=== PATIENT | male | born 1990 | race Caucasian/White ===

== ENCOUNTER 2021-03-12 20:53 | Emergency (ER) | payer MEDICAID ==
[~2021-03-12] VITALS: Ht 180.3 cm; Wt 100.0 kg
[~2021-03-12 20:53] MED LIST: HYDR-2514 PO; NAPR-700 PO
[2021-03-13 00:29] LABS: BASOPHILS % (AUTO) 0.6 % (0-1); EOSINOPHILS # (AUTO) 0.1 X10'3 (0-0.9); EOSINOPHILS % (AUTO) 1.5 % (0-6); HEMATOCRIT 40.9 % (42.0-52.0); LYMPHOCYTES # (AUTO) 2.1 X10'3 (1.1-4.8); LYMPHOCYTES % (AUTO) 33.1 % (21-51); MEAN CORPUSCULAR HEMOGLOBIN 29.7 PG (27.0-31.0); MEAN CORPUSCULAR HGB CONC 34.1 g/dL (33.0-36.5); MEAN PLATELET VOLUME 8.2 FL (7.4-10.4); MONOCYTES # (AUTO) 0.4 X10'3 (0-0.9); MONOCYTES % (AUTO) 6.2 % (2-12); NEUTROPHILS # (AUTO) 3.7 X10'3 (1.8-7.7); NEUTROPHILS % (AUTO) 58.6 % (42-75); PLATELET COUNT 282 X10'3 (140-440); RED BLOOD COUNT 4.71 X10'6 (4.70-6.10); RED CELL DISTRIBUTION WIDTH 13.2 % (11.5-14.5); WHITE BLOOD COUNT 6.3 X10'3 (4.5-11.0)
[2021-03-13 01:16] LABS: ANION GAP 8 (8-16); BLOOD UREA NITROGEN 11 MG/DL (7-18); CALCIUM 9.5 MG/DL (8.5-10.1); CHLORIDE 107 MMOL/L (99-107); CREATININE 0.92 MG/DL (0.60-1.10); GLUCOSE 88 MG/DL (70-104); POTASSIUM 4.4 MMOL/L (3.5-5.1); SODIUM 144 MMOL/L (135-145); TOTAL CARBON DIOXIDE 28.6 MMOL/L (24-32); TROPONIN I < 0.04 NG/ML (0.0-0.05); eGFR > 90 ML/MIN
[2021-03-13 02:11] VITALS: BP 141/68
== END 2021-03-13 02:12 | disposition home or self-care (01) ==
LOC: ER 20:54
DX: R55 Syncope and collapse (principal); R51.9 Headache, unspecified
CPT/HCPCS: 36415; 70450; 71045; 80048; 84484; 85025; 93005; 99285

== ENCOUNTER 2021-08-31 13:48 | Emergency (ER) | payer MEDICAID ==
[~2021-08-31] VITALS: Ht 180.3 cm; Wt 104.0 kg
[2021-08-31] MEDS ORDERED: NALO4SPR BOTHNARES (14:35)
[2021-08-31 14:56] VITALS: BP 143/84
== END 2021-08-31 14:58 | disposition home or self-care (01) ==
LOC: ER 13:48
DX: T50.7X1A Poisoning by analeptics and opioid receptor antagonists, accidental (unintentional), initial encounter (principal); Z79.899 Other long term (current) drug therapy; Z98.890 Other specified postprocedural states; Y92.89 Other specified places as the place of occurrence of the external cause
CPT/HCPCS: 93005; 99283

== ENCOUNTER 2022-01-29 01:29 | Emergency (ER) | payer MEDICAID ==
[~2022-01-29] VITALS: Ht 180.3 cm; Wt 86.4 kg
[~2022-01-29 01:29] MED LIST changes: +NALO4SPR BOTHNARES
--- NOTE | 2022-01-29 03:00 | NUR ---
PT BACK FROM CT SCAN, DROWSY BUT AWAKENS EASILY TO VOICE.
--- NOTE | 2022-01-29 03:55 | NUR ---
PT DOZING ON MAVIS, NO CHANGE, VS WNL
--- NOTE | 2022-01-29 04:43 | NUR ---
PT REMAINS DROWSY BUT AWAKENS TO VOICE.
[2022-01-29] MEDS ORDERED: NALO4SPR BOTHNARES (04:45)
[2022-01-29 06:17] VITALS: BP 127/85
== END 2022-01-29 06:20 | disposition home or self-care (01) ==
LOC: ER 01:29
DX: T40.411A Poisoning by fentanyl or fentanyl analogs, accidental (unintentional), initial encounter (principal); Z98.890 Other specified postprocedural states; Z72.89 Other problems related to lifestyle; Z79.899 Other long term (current) drug therapy; Y92.89 Other specified places as the place of occurrence of the external cause
CPT/HCPCS: 70450; 70486; 99285

== ENCOUNTER 2022-07-17 07:31 | Inpatient (IN) | payer MEDICAID ==
[~2022-07-17] VITALS: Ht 154.9 cm; Wt 81.9 kg
[2022-07-17] MEDS ORDERED: VANCOMYCIN 1,500MG inj. 1,500 MG in normal saline 500ml IV soln 300 ML IV ONE (08:25)
[2022-07-17 08:29] LABS: BASOPHILS # (AUTO) 0.1 X10'3 (0-0.2); BASOPHILS % (AUTO) 0.5 % (0-1); EOSINOPHILS # (AUTO) 0.1 X10'3 (0-0.9); EOSINOPHILS % (AUTO) 0.5 % (0-6); HEMATOCRIT 33.8 % (42.0-52.0); LYMPHOCYTES # (AUTO) 1.7 X10'3 (1.1-4.8); LYMPHOCYTES % (AUTO) 11.4 % (21-51); MEAN CORPUSCULAR HEMOGLOBIN 28.4 PG (27.0-31.0); MEAN CORPUSCULAR HGB CONC 32.7 g/dL (33.0-36.5); MEAN CORPUSCULAR VOLUME 86.9 FL (78-98); MEAN PLATELET VOLUME 7.6 FL (7.4-10.4); MONOCYTES % (AUTO) 7.1 % (2-12); NEUTROPHILS # (AUTO) 11.8 X10'3 (1.8-7.7); NEUTROPHILS % (AUTO) 80.5 % (42-75); PLATELET COUNT 281 X10'3 (140-440); RED BLOOD COUNT 3.89 X10'6 (4.70-6.10); WHITE BLOOD COUNT 14.7 X10'3 (4.5-11.0)
[2022-07-17 08:46] LABS: ALANINE AMINOTRANSFERASE 67 U/L (12-78); ALBUMIN 3.1 G/DL (3.4-5.0); ALBUMIN/GLOBULIN RATIO 0.8 (1.1-1.5); ALKALINE PHOSPHATASE 152 IU/L (46-116); ANION GAP 7 (8-16); ASPARTATE AMINO TRANSFERASE 59 U/L (10-37); BILIRUBIN,TOTAL 0.3 MG/DL (0.1-1.0); BLOOD UREA NITROGEN 14 MG/DL (7-18); BUN/CREATININE RATIO 17.5 (5.4-32.0); CHLORIDE 105 MMOL/L (99-107); GLUCOSE 116 MG/DL (70-104); SODIUM 139 MMOL/L (135-145); TOTAL CARBON DIOXIDE 26.8 MMOL/L (24-32); TOTAL PROTEIN 7.1 G/DL (6.4-8.2); eGFR > 90 ML/MIN
[2022-07-17] MEDS ORDERED: magnesium 4gm in 100ml NS 100 ML IV PRN (10:40)
[2022-07-17] MEDS ORDERED: acetaminophen 325mg tablet PO PRN (10:40)
[2022-07-17] MEDS ORDERED: diphenhydrAMINE 25mg capsule PO PRN (10:40)
[2022-07-17] MEDS ORDERED: magnesium hydroxide 30ml (MOM) UD suspension PO PRN (10:40)
[2022-07-17] MEDS ORDERED: magnesium Cl slow-release 64mg tablet PO PRN (10:40)
[2022-07-17] MEDS ORDERED: morphine 2 MG/ML inj. syringe IV PRN ×2 (10:40)
[2022-07-17] MEDS ORDERED: potassium Cl 40MEQ/1/2NS 520ml 520 ML IV PRN (10:40)
[2022-07-17] MEDS ORDERED: bisacodyl 10mg suppository rectal RC PRN (10:40)
[2022-07-17] MEDS ORDERED: acetaminophen 650mg rectal suppository RC PRN (10:40)
[2022-07-17] MEDS ORDERED: mag hydrox/Alum hydrox/simeth 30ml oral suspension PO PRN (10:40)
[2022-07-17] MEDS ORDERED: potassium Cl 20 mEq SR tablet PO PRN ×2 (10:40)
[2022-07-17] MEDS ORDERED: ondansetron/PF 4mg/2ml inj IV PRN (10:40)
[2022-07-17] MEDS: normal saline 1000ml 1,000 ML IV SCH ×2 (11:04→20:51)
[2022-07-17] MEDS: piperacillin/tazo 3.375gm/50ml 50 ML IV SCH ×2 (11:05→17:39)
[2022-07-17 11:16] LABS: HEMOGLOBIN A1C 5.5 % (4.5-6.2)
--- NOTE | 2022-07-17 12:36 | NUR ---
report received from er nurse coral
[2022-07-17] MEDS ORDERED: iohexol 300mg/ml 100ml inj. ONE (17:44)
[2022-07-17] MEDS ORDERED: NO HOME MEDS (17:59)
[2022-07-17 18:00] VITALS: BP_SYST 112; BP_DIAS 6; BP_DIAS 67
--- NOTE | 2022-07-17 18:30 | NUR ---
Patient in room [facility]. I have received report from Anjelica ZARATE and had the opportunity to ask questions and assume patient care.
--- NOTE | 2022-07-17 18:32 | NUR ---
Problems reprioritized. Patient report given, questions answered & plan of care reviewed with Candace MAHAN.
[2022-07-17] MEDS: K and/or MAG REPLACEMENT MC SCH (19:30)
[2022-07-17] MEDS: docusate sod 100mg capsule PO SCH (20:00)
[2022-07-17] MEDS: HYDROcodone/acetaminophen 10/325mg tab PO PRN (20:48)
[2022-07-17] MEDS: VANCOmycin 1250MG/NS 250ml Bag 250 ML IV SCH (20:52)
[2022-07-17] MEDS: heparin, porcine 5000 units/ml vial SQ SCH (21:02)
[2022-07-17 22:00] VITALS: BP 129/77
[2022-07-18] MEDS: piperacillin/tazo 3.375gm/50ml 50 ML IV SCH ×3 (00:06→15:43)
[2022-07-18 05:59] LABS: ALANINE AMINOTRANSFERASE 55 U/L (12-78); ALBUMIN 2.8 G/DL (3.4-5.0); ALBUMIN/GLOBULIN RATIO 0.7 (1.1-1.5); ALKALINE PHOSPHATASE 152 IU/L (46-116); ANION GAP 8 (8-16); ASPARTATE AMINO TRANSFERASE 32 U/L (10-37); BILIRUBIN,TOTAL 0.4 MG/DL (0.1-1.0); BLOOD UREA NITROGEN 11 MG/DL (7-18); BUN/CREATININE RATIO 13.6 (5.4-32.0); CHLORIDE 104 MMOL/L (99-107); CHOL/HDL RATIO 2.3 (0.00-4.99); CHOLESTEROL 98 MG/DL (0-200); CREATININE 0.81 MG/DL (0.60-1.10); GLUCOSE 100 MG/DL (70-104); HDL CHOLESTEROL 43 MG/DL (35-60); LDL CHOLESTEROL 51 MG/DL (50-100); PHOSPHORUS 4.2 MG/DL (2.3-4.5); POTASSIUM 4.2 MMOL/L (3.5-5.1); SODIUM 138 MMOL/L (135-145); TOTAL CARBON DIOXIDE 26.2 MMOL/L (24-32); TOTAL PROTEIN 6.7 G/DL (6.4-8.2); TRIGLYCERIDES 42 MG/DL (20-135); eGFR > 90 ML/MIN
[2022-07-18 06:00] VITALS: BP 131/78
[2022-07-18 06:12] LABS: BASOPHILS # (AUTO) 0.1 X10'3 (0-0.2); BASOPHILS % (AUTO) 0.6 % (0-1); EOSINOPHILS # (AUTO) 0.3 X10'3 (0-0.9); EOSINOPHILS % (AUTO) 3.1 % (0-6); HEMATOCRIT 33.5 % (42.0-52.0); HEMOGLOBIN 11.2 g/dl (14.0-17.9); LYMPHOCYTES # (AUTO) 2.1 X10'3 (1.1-4.8); LYMPHOCYTES % (AUTO) 20.8 % (21-51); MEAN CORPUSCULAR HEMOGLOBIN 29.2 PG (27.0-31.0); MEAN CORPUSCULAR HGB CONC 33.3 g/dL (33.0-36.5); MEAN CORPUSCULAR VOLUME 87.6 FL (78-98); MEAN PLATELET VOLUME 7.5 FL (7.4-10.4); MONOCYTES # (AUTO) 0.8 X10'3 (0-0.9); MONOCYTES % (AUTO) 7.6 % (2-12); NEUTROPHILS # (AUTO) 6.8 X10'3 (1.8-7.7); NEUTROPHILS % (AUTO) 67.9 % (42-75); PLATELET COUNT 311 X10'3 (140-440); RED BLOOD COUNT 3.82 X10'6 (4.70-6.10); RED CELL DISTRIBUTION WIDTH 13.5 % (11.5-14.5); WHITE BLOOD COUNT 10.1 X10'3 (4.5-11.0)
[2022-07-18] MEDS: normal saline 1000ml 1,000 ML IV SCH ×3 (06:40→20:16)
--- NOTE | 2022-07-18 06:43 | NUR ---
Problems reprioritized. Patient report given, questions answered & plan of care reviewed with Anjelica ZARATE.
--- NOTE | 2022-07-18 06:51 | NUR ---
Patient in room [facility]. I have received report from ANNITA MAHAN and had the opportunity to ask questions and assume patient care.
[2022-07-18] MEDS: docusate sod 100mg capsule PO SCH ×2 (08:00→20:00)
[2022-07-18] MEDS: K and/or MAG REPLACEMENT MC SCH ×2 (08:00→19:13)
[2022-07-18] MEDS: HYDROcodone/acetaminophen 10/325mg tab PO PRN (08:40)
[2022-07-18] MEDS: heparin, porcine 5000 units/ml vial SQ SCH ×2 (08:40→21:48)
[2022-07-18 11:48] VITALS: BP 138/94
[2022-07-18] MEDS: VANCOmycin 1250MG/NS 250ml Bag 250 ML IV SCH ×2 (13:38→21:55)
--- NOTE | 2022-07-18 17:45 | NUR ---
I have reviewed and agree with all interventions, assessments performed, and documentation by Anjelica Martin LVN.
[2022-07-18 18:00] VITALS: BP 140/94
--- NOTE | 2022-07-18 18:05 | NUR ---
Problems reprioritized. Patient report given, questions answered & plan of care reviewed with Candace MAHAN.
--- NOTE | 2022-07-18 18:10 | NUR ---
Patient in room [facility]. I have received report from Anjelica ZARATE and had the opportunity to ask questions and assume patient care.
[2022-07-18] MEDS: HYDROcodone/acetaminophen 5mg/325mg tablet PO PRN (19:06)
[2022-07-18] MEDS ORDERED: VANCOMYCIN LEVEL IV ONE (20:30)
[2022-07-18 22:00] VITALS: BP 127/69
[2022-07-19] MEDS: piperacillin/tazo 3.375gm/50ml 50 ML IV SCH ×2 (00:31→07:49)
[2022-07-19] MEDS: HYDROcodone/acetaminophen 5mg/325mg tablet PO PRN (00:35)
[2022-07-19] MEDS: normal saline 1000ml 1,000 ML IV SCH (05:14)
[2022-07-19 06:08] LABS: BASOPHILS # (AUTO) 0.1 X10'3 (0-0.2); BASOPHILS % (AUTO) 1.1 % (0-1); EOSINOPHILS # (AUTO) 0.5 X10'3 (0-0.9); EOSINOPHILS % (AUTO) 6.6 % (0-6); HEMATOCRIT 36.6 % (42.0-52.0); HEMOGLOBIN 12.3 g/dl (14.0-17.9); LYMPHOCYTES # (AUTO) 1.9 X10'3 (1.1-4.8); LYMPHOCYTES % (AUTO) 26.3 % (21-51); MEAN CORPUSCULAR HEMOGLOBIN 29.1 PG (27.0-31.0); MEAN CORPUSCULAR HGB CONC 33.5 g/dL (33.0-36.5); MEAN CORPUSCULAR VOLUME 86.7 FL (78-98); MEAN PLATELET VOLUME 7.2 FL (7.4-10.4); MONOCYTES # (AUTO) 0.5 X10'3 (0-0.9); MONOCYTES % (AUTO) 6.3 % (2-12); NEUTROPHILS # (AUTO) 4.4 X10'3 (1.8-7.7); NEUTROPHILS % (AUTO) 59.7 % (42-75); PLATELET COUNT 340 X10'3 (140-440); RED BLOOD COUNT 4.22 X10'6 (4.70-6.10); RED CELL DISTRIBUTION WIDTH 13.2 % (11.5-14.5); WHITE BLOOD COUNT 7.4 X10'3 (4.5-11.0)
--- NOTE | 2022-07-19 06:10 | NUR ---
Problems reprioritized. Patient report given, questions answered & plan of care reviewed with Anjelica ZARATE.
[2022-07-19 06:40] LABS: ALANINE AMINOTRANSFERASE 48 U/L (12-78); ALBUMIN/GLOBULIN RATIO 0.7 (1.1-1.5); ALKALINE PHOSPHATASE 191 IU/L (46-116); ANION GAP 6 (8-16); ASPARTATE AMINO TRANSFERASE 28 U/L (10-37); BILIRUBIN,TOTAL 0.3 MG/DL (0.1-1.0); BLOOD UREA NITROGEN 14 MG/DL (7-18); BUN/CREATININE RATIO 14.9 (5.4-32.0); CALCIUM 9.1 MG/DL (8.5-10.1); CHLORIDE 104 MMOL/L (99-107); CREATININE 0.94 MG/DL (0.60-1.10); GLUCOSE 98 MG/DL (70-104); PHOSPHORUS 4.9 MG/DL (2.3-4.5); POTASSIUM 4.2 MMOL/L (3.5-5.1); SODIUM 137 MMOL/L (135-145); TOTAL CARBON DIOXIDE 27.5 MMOL/L (24-32); TOTAL PROTEIN 7.2 G/DL (6.4-8.2); eGFR > 90 ML/MIN
[2022-07-19] MEDS: heparin, porcine 5000 units/ml vial SQ SCH (08:00)
[2022-07-19] MEDS: K and/or MAG REPLACEMENT MC SCH (08:00)
[2022-07-19] MEDS: docusate sod 100mg capsule PO SCH (08:00)
[2022-07-19] MEDS: VANCOmycin 1250MG/NS 250ml Bag 250 ML IV SCH (08:40)
[2022-07-19] MEDS ORDERED: LINE600T12 PO (14:30)
[2022-07-19] MEDS ORDERED: LACT1CAP26 PO (14:31)
--- NOTE | 2022-07-19 15:00 | NUR ---
I have reviewed and agree with all interventions, assessments performed and documented by Anjelica Martin LVN.
--- NOTE | 2022-07-19 16:15 | NUR ---
PT DISCHARGED IN STABLE CONDITION. LEFT FACILITY VIA WALKING. EJ DCd, CANULA INTACT, PT TOLERATED WELL. FOLLOW UP INSTRUCTIONS GIVEN, ALL QUESTIONS ANSWERED. PT AWARE HE HAS ABX WAITING AT PHARMACY WITH A 10 DAY DOSE. PT AWARE HE NEEDS TO FOLLOW UP WITH PCP, AND COME BACK TO ER IF SYMPTOMS GET WORSE. ALL BELONGINGS IN HAND. Addendum: 07/19/22 at 1617 by Xin Mitchell RN Amended: Links added.
== END 2022-07-19 16:15 | disposition home or self-care (01) | DRG 383 ==
LOC: ER 07:32 → ED HOLD 10:42 → EDBEDREQ 12:16 → SUR 3N 12:45
PROVIDERS: ADMIT Family Medicine; ATTEND Family Medicine
PROC: BP2 Imaging, Non-Axial Upper Bones, Computerized Tomography (CT Scan) (ICD-10-PCS; principal; 2022-07-17)
DX: L03.114 Cellulitis of left upper limb (principal); F15.20 Other stimulant dependence, uncomplicated; F17.200 Nicotine dependence, unspecified, uncomplicated; Z59.00 Homelessness unspecified; Z79.899 Other long term (current) drug therapy
CPT/HCPCS: 36415; 73201; 80053; 80061; 80202; 83036; 83605; 83735; 84100; 84145; 85025; 87040; 87081; 99285; A6258; A6407; A6449; G0378; J1644; J2543; J3370; J3490; J7030; J7040; Q9967

== ENCOUNTER 2023-02-09 06:48 | Emergency (ER) | payer MEDICAID, SELFPAY ==
[~2023-02-09] VITALS: Ht 180.3 cm; Wt 84.0 kg
[~2023-02-09 06:48] MED LIST changes: -HYDR-2514 PO; +LACT1CAP26 PO; -NALO4SPR BOTHNARES; -NAPR-700 PO
[2023-02-09 08:46] VITALS: BP 123/80; PULSE 84; RESP 17; TEMP 97.7; O2SAT 95
[2023-02-09] MEDS ORDERED: NALO4SPR BOTHNARES (09:17)
--- NOTE | 2023-02-09 09:28 | NUR ---
Met with patient in regards to substance use and to see if patient was interested in resources. Patient declined.
== END 2023-02-09 09:34 | disposition home or self-care (01) ==
LOC: ER 06:49
DX: T40.411A Poisoning by fentanyl or fentanyl analogs, accidental (unintentional), initial encounter (principal); R09.2 Respiratory arrest; F17.200 Nicotine dependence, unspecified, uncomplicated; F15.90 Other stimulant use, unspecified, uncomplicated; Z79.899 Other long term (current) drug therapy; Y92.89 Other specified places as the place of occurrence of the external cause
CPT/HCPCS: 71045; 93005; 99283

== ENCOUNTER 2025-01-29 21:54 | Emergency (ER) | payer MEDICAID, SELFPAY ==
[~2025-01-29] VITALS: Ht 182.9 cm; Wt 70.5 kg
[~2025-01-29 21:54] MED LIST changes: +NALO4SPR BOTHNARES
[2025-01-29 23:18] VITALS: TEMP 96.3
--- NOTE | 2025-01-30 00:01 | RADIOLOGY REPORT ---
Procedure: DI TIB/FIB 2 VWS 01/29/2025 11:16 PM TECHNIQUE: DI TIB/FIB 2 VWS, DI ANKLE, COMPLETE(3VW MIN), DI KNEE, COMP 4 VW MIN Indication: LEG PAIN LEFT Comparison: None FINDINGS: Bones: No acute fracture or dislocation. mild ankle effusion. Soft tissues: Unremarkable. No radiopaque foreign body. IMPRESSION: 1. No acute osseous abnormality. 2. mild ankle effusion.
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
[2025-01-30] MEDS: ibuprofen tablet 400 MG TABLET PO ONE (01:16)
[2025-01-30] MEDS: bacitracin 15gm ointment TP ONE (01:18)
[2025-01-30 01:30] VITALS: BP 139/94; PULSE 78; RESP 16; O2SAT 98
== END 2025-01-30 01:47 | disposition home or self-care (01) ==
LOC: ER 21:55
DX: S01.81XA Laceration without foreign body of other part of head, initial encounter (principal); F15.90 Other stimulant use, unspecified, uncomplicated; Z59.00 Homelessness unspecified; Y04.8XXA Assault by other bodily force, initial encounter; Y93.89 Activity, other specified; Y92.89 Other specified places as the place of occurrence of the external cause; Y99.8 Other external cause status
CPT/HCPCS: 12001; 73564; 73590; 73610; 99284